=== PATIENT | male | born 1935 | race Caucasian/White ===

== ENCOUNTER → 2016-09-04 | Outpatient (CLI) | payer MEDICARE, BC ==
[2015-08-25 10:45] VITALS: BP 138/60
[~2016-09-04] MED LIST: ANTIFUNGAL CREA14 GM TP; ASPIRIN 32325 MG/TAB PO; CALCIUM600 M1 PO; HYDROCHLOROTHIA50 MG PO; LIPITOR 80MG80 MG PO; LOTREL 10 MG-201 CAP PO; MULTIPLE VITAMI1 CAP PO; NAPROXEN220 MG PO; VITAMIN C100 M2 PO; VITAMIN E 400 U4001 PO; ZETIA 10MG TAB10 MG PO
== END ==
LOC: RAD 10:28
DX: E78.2 Mixed hyperlipidemia (principal); Z12.5 Encounter for screening for malignant neoplasm of prostate; I10 Essential (primary) hypertension

== ENCOUNTER → 2016-10-11 | Outpatient (CLI) | payer MEDICARE, BC ==
[2015-08-25 10:45] VITALS: BP 138/60
== END ==
LOC: LAB 09:40
DX: E78.2 Mixed hyperlipidemia (principal); Z12.5 Encounter for screening for malignant neoplasm of prostate; I10 Essential (primary) hypertension

== ENCOUNTER → 2016-11-13 | Outpatient (CLI) | payer MEDICARE, BC ==
[2015-08-25 10:45] VITALS: BP 138/60
== END ==
LOC: LAB 09:49
DX: I10 Essential (primary) hypertension (principal)

== ENCOUNTER → 2016-12-12 | Outpatient (CLI) | payer MEDICARE, BC ==
[2015-08-25 10:45] VITALS: BP 138/60
== END ==
LOC: LAB 11:30
DX: I10 Essential (primary) hypertension (principal)

== ENCOUNTER → 2017-01-15 | Outpatient (CLI) | payer MEDICARE, BC ==
[2015-08-25 10:45] VITALS: BP 138/60
== END ==
LOC: LAB 11:19
DX: I10 Essential (primary) hypertension (principal)

== ENCOUNTER → 2017-04-18 | Outpatient (CLI) | payer MEDICARE, BC ==
[2015-08-25 10:45] VITALS: BP 138/60
[2017-04-18 12:58] LABS: BUN/CREATININE RATIO 26.3 (6.0-26.0); CALCIUM 8.9 mg/dL (8.4-10.2); POTASSIUM 4.3 mmol/L (3.6-5.0)
== END ==
LOC: LAB 11:56
PROVIDERS: Internal Medicine
DX: I10 Essential (primary) hypertension (principal)

== ENCOUNTER 2017-06-11 14:00 | Emergency (ER) | payer MEDICARE, BC ==
[~2017-06-11] VITALS: Wt 98.3 kg
[2017-06-11] MEDS ORDERED: ATORVASTATIN CA80 MG PO (14:48)
[2017-06-11] MEDS ORDERED: AMLODIPINE BES1 CAP PO (14:48)
[2017-06-11 14:49] LABS: HEMATOCRIT 29.5 % (42.0-52.0); HEMOGLOBIN 9.1 g/dL (13.5-18.0); MEAN CELL VOLUME 92 fl (78-100); MEAN CORPUSCULAR HEMOGLOBIN 28 pg (27-31); MEAN CORPUSCULAR HGB CONC 31 g/dL (33-37); MEAN PLATELET VOLUME 9.6 fl (7.4-10.4); PLATELET COUNT 224 K/mm3 (130-400); RED CELL DISTRIBUTION WIDTH 15.4 % (11.5-14.5); WHITE BLOOD COUNT 8.3 K/mm3 (4.8-10.8)
[2017-06-11 15:07] LABS: ALBUMIN 3.5 g/dL (3.5-5.0); BUN/CREATININE RATIO 26.1 (6.0-26.0); CALCIUM 8.6 mg/dL (8.4-10.2); TOTAL BILIRUBIN 0.2 mg/dL (0.2-1.3); TOTAL PROTEIN 6.1 g/dL (6.3-8.2)
[2017-06-11 16:22] LABS: LYMPHOCYTE 6 % (20-51); MONOCYTE 5 % (3-10); NEUTROPHILS 87 % (42-75)
[2017-06-11 17:25] VITALS: BP 165/79
== END 2017-06-11 17:20 | disposition other institution (70) ==
LOC: ED 14:00
PROVIDERS: Physician Assistant
DX: J43.9 Emphysema, unspecified (principal); I25.10 Atherosclerotic heart disease of native coronary artery without angina pectoris; I10 Essential (primary) hypertension; F17.210 Nicotine dependence, cigarettes, uncomplicated; Z86.73 Personal history of transient ischemic attack (TIA), and cerebral infarction without residual deficits; R01.1 Cardiac murmur, unspecified; Z79.82 Long term (current) use of aspirin; Z88.1 Allergy status to other antibiotic agents

== ENCOUNTER 2017-06-11 17:06 | Inpatient (IN) | payer MEDICARE, BC ==
[~2017-06-11] VITALS: Ht 180.3 cm; Wt 90.9 kg
[~2017-06-11 17:06] MED LIST changes: +AMLODIPINE BES1 CAP PO; +ATORVASTATIN CA80 MG PO
[2017-06-11 17:25] VITALS: BP 165/79
--- NOTE | 2017-06-11 17:30 | NUR ---
Pt admitted to room 206. Pt alert and oriented. Denies any current. at bedside. Pt reports worsening SOB with exertion. 02 on 2L via n/c. Lungs coarse throughout. Fall precautions in place. Call light in reach.
[2017-06-11 18:08] VITALS: BP 141/56
--- NOTE | 2017-06-11 20:33 | NUR ---
Chair alarm sounding. Pt found standing up in bathroom using urinal. Pt stated "I couldn't wait." Pt voided 300mls of yellow urine. Pt used walker, gait belt applied and manager etl socks on. Pt walked to recliner using walker. Gait steady.
[2017-06-12] VITALS (7 sets, daily range): BP systolic 132–141; BP diastolic 50–65
--- NOTE | 2017-06-12 06:00 | NUR ---
PATIENT HAS HAD CONTINUOUS PULSE OXIMETRY ON ALL SHIFT, SATS REMAINED PRIMARILY 92-95% ON 2L/NC, OCCASIONAL VERY BRIEF TIMES IT DIPPED TO 88%, PATIENT SLEPT WELL AND IS ALREADY SITTING UP IN HIS CHAIR READING A BOOK THIS AM, DENIES ANY NEEDS/COMPLAINTS AT THIS TIME, CALL LIGHT WITHIN REACH
--- NOTE | 2017-06-12 07:15 | NUR ---
REPORT RECEIVED FROM KAYLYN NARANJO.
--- NOTE | 2017-06-12 08:00 | NUR ---
AWAKE. TALKATIVE. OXYGEN IN PLACE AT 2LPM VIA NC. WHEEZES TO BILAT LUNG BASES WITH EXPIRATION; THEY CLEAR WITH COUGH. LOOSE SOUNDING COUGH UNPRODUCTIVE. HEART MURMUR NOTED. COMFORTABLE AT PRESENT. 2+ PITTING EDEMA TO BILAT FEET. 1+ PITTING EDEMA TO BILAT LE AT CALF/ANKLE REGION. CALL LIGHT IN REACH.
--- NOTE | 2017-06-12 08:45 | NUR ---
MICONAZOLE CREAM APPLIED TO BILAT FEET. RED FLAKEY AREAS NOTED TO BILAT FEET. ON THE RIGHT FOOT THEY APPEAR AROUND TOES AND ON PLANTAR SURFACE OF FOOT TO THE ARCH. ON THE LEFT FOOT THEY ALSO APPEAR AROUND THE TOES, BALL OF FOOT AND TOP OF FOOT TO MIDDLE.
--- NOTE | 2017-06-12 09:05 | NUR ---
BLOOD NOTED UNDER TEGADERM TO LT AC. INT PLACEMENT HAS APPROPRIATE BLOOD RETURN. SITE CLEANSED AND NEW TEGADERM DRESSING APPLIED.
--- NOTE | 2017-06-12 12:12 | NUR ---
DR HOOVER IN TO SEE PATIENT. [facility] DOES NOT HAVE LOTENSIN AVAILABLE AT PRESENT. OFFER TO SUB WITH LISINOPRIL OR HOLD DOSE UNTIL DELIVERY THIS AFTERNOON. DR HOOVER ORDERS TO GIVE LOTENSIN WHEN MED AVAILABLE. DO NOT SUB WITH LISINOPRIL. [facility] NOTIFIED.
--- NOTE | 2017-06-12 12:59 | NUR ---
PATIENT SITTING IN CHAIR READING A BOOK. LUNGS CTA BILAT. OXYGEN REMAINS IN PLACE AT 2LPM VIA NC. REPORTS DISCOMFORT TO UPPER BACK. DOES NOT RATE THIS PAIN WHEN ASKED, JUST STATES "IT COMES AND GOES. I HAVE A PINCHED NERVE THERE." HE USES HEAT AT HOME. WILL USE K-PAD PRN TO RELIEVE DISCOMFORT.
--- NOTE | 2017-06-12 15:22 | NUR ---
PATIENT REPORTS K-PAD IS HELPING WITH DISCOMFORT. CONTINUES TO HAVE SHORTNESS OF BREATH WITH ACTIVITY. OXYGEN DECREASED TO 1LPM PER NASAL CANNULA. REMAINS ON CONTINUOUS PULSE OX.
[2017-06-13 03:25] VITALS: BP 138/63
--- NOTE | 2017-06-13 03:30 | NUR ---
UPON ROUNDING CHECKS AND VITAL SIGNS, PATIENT WAS OBSERVED TO HAVE PULLED HIS IV OUT AND WAS WITHOUT HIS O2 TUBING. PATIENT DOES NOT APPEAR TO BE IN ANY OBVIOUS DISTRESS AT THIS TIME. PATIENT IS ALERT AND ORIENTED, AND CONVERSES APPROPRIATELY WITH STAFF. PATIENT DENIES KNOWING HOW THE IV GOT PULLED OUT BUT ACCEPTS THE OFFER OF THIS RN TO START ANOTHER ONE. PATIENT PROVIDED EDUCATION AT THIS TIME. O2 IS ALSO REPLACED WITH ENCOURAGEMENT TO KEEP IT ON. HOB ELEVATED TO A 20 DEGREE ANGLE. BED RAILS UP X2. BED ALARM ARMED. CALL LIGHT WITHIN REACH. CLOSE MONITORING AND HOURLY ROUNDING CONTINUE.
[2017-06-13 06:31] VITALS: BP 142/68
[2017-06-13 06:31] LABS: HEMATOCRIT 25.1 % (42.0-52.0); MEAN CELL VOLUME 92 fl (78-100); MEAN CORPUSCULAR HEMOGLOBIN 29 pg (27-31); MEAN CORPUSCULAR HGB CONC 31 g/dL (33-37); MEAN PLATELET VOLUME 10.2 fl (7.4-10.4); PLATELET COUNT 215 K/mm3 (130-400); RED BLOOD COUNT 2.74 M/mm3 (4.20-5.60); RED CELL DISTRIBUTION WIDTH 15.4 % (11.5-14.5); WHITE BLOOD COUNT 12.4 K/mm3 (4.8-10.8)
[2017-06-13 06:33] LABS: HEMOGLOBIN 7.8 g/dL (13.5-18.0)
--- NOTE | 2017-06-13 06:34 | NUR ---
CRITICAL HGB REPORTED TO THIS RN. VALUE REPORTED TO ERICK RAMIREZ.
[2017-06-13 06:36] LABS: ALBUMIN 3.4 g/dL (3.5-5.0); BUN/CREATININE RATIO 36.6 (6.0-26.0); CALCIUM 8.4 mg/dL (8.4-10.2); POTASSIUM 4.7 mmol/L (3.6-5.0); TOTAL BILIRUBIN 0.2 mg/dL (0.2-1.3); TOTAL PROTEIN 6.1 g/dL (6.3-8.2)
[2017-06-13 06:43] LABS: LYMPHOCYTE 1 % (20-51); MONOCYTE 1 % (3-10); NEUTROPHILS 98 % (42-75)
--- NOTE | 2017-06-13 07:00 | NUR ---
REPORT RECEIVED FROM HO NARANJO.
--- NOTE | 2017-06-13 07:00 | NUR ---
REPORT GIVEN TO LAURA Carias RN.
--- NOTE | 2017-06-13 07:36 | NUR ---
[employer] OPERATOR WAKES PATIENT TO GET READY FOR DAY. NOTES BLOOD TO GOWN AND SHEET. BLOOD NOTED TO RT AC UNDER AND AROUND INT DRESSING. INT FLUSHES EASILY WITH APPROPRIATE BLOOD RETURN. DRESSING REMOVED AND SKIN CLEANSED; NEW TEGADERM APPLIED.
--- NOTE | 2017-06-13 08:08 | NUR ---
DR HOOVER IN WITH PATIENT.
[2017-06-13 11:13] VITALS: BP 131/62
[2017-06-13 15:33] VITALS: BP 118/52
--- NOTE | 2017-06-13 15:48 | NUR ---
WALKS IN HALLWAY WITH PT. HAS TO STOP IN HALLWAY FOR BREAK DUE TO LE WEAKNESS AND FATIGUE. PULSE 127 WITH ACTIVITY. MAINTAINS PULSE OX SATURATION 89% OR GREATER.
[2017-06-13 18:00] VITALS: BP 133/62
--- NOTE | 2017-06-13 19:22 | NUR ---
REPORT PROVIDED TO KAYLYN NARANJO.
[2017-06-13 23:24] VITALS: BP 124/63
[2017-06-14 03:28] VITALS: BP 115/47
[2017-06-14 06:21] VITALS: BP 129/69
[2017-06-14 07:00] LABS: HEMATOCRIT 25.3 % (42.0-52.0); MEAN CELL VOLUME 92 fl (78-100); MEAN CORPUSCULAR HEMOGLOBIN 29 pg (27-31); MEAN CORPUSCULAR HGB CONC 32 g/dL (33-37); MEAN PLATELET VOLUME 9.9 fl (7.4-10.4); PLATELET COUNT 222 K/mm3 (130-400); RED BLOOD COUNT 2.76 M/mm3 (4.20-5.60); RED CELL DISTRIBUTION WIDTH 15.6 % (11.5-14.5); WHITE BLOOD COUNT 12.2 K/mm3 (4.8-10.8)
[2017-06-14 07:12] LABS: BUN/CREATININE RATIO 44.1 (6.0-26.0); CALCIUM 8.2 mg/dL (8.4-10.2); POTASSIUM 4.5 mmol/L (3.6-5.0)
[2017-06-14 07:50] LABS: LYMPHOCYTE 2 % (20-51); MONOCYTE 4 % (3-10); NEUTROPHILS 94 % (42-75)
[2017-06-14 11:20] VITALS: BP 125/38
[2017-06-14 14:19] VITALS: BP 131/56
== END 2017-06-14 15:36 | disposition swing bed (61) | DRG 191 ==
LOC: MED/SURG 17:06
PROVIDERS: Internal Medicine; ADMIT Nurse Practitioner
DX: J43.9 Emphysema, unspecified (principal); I50.30 Unspecified diastolic (congestive) heart failure; I11.0 Hypertensive heart disease with heart failure; Z66 Do not resuscitate; I50.82 Biventricular heart failure; F17.210 Nicotine dependence, cigarettes, uncomplicated; E78.5 Hyperlipidemia, unspecified; D64.9 Anemia, unspecified; I25.10 Atherosclerotic heart disease of native coronary artery without angina pectoris
CPT/HCPCS: J1650; J1940; J2930

== ENCOUNTER 2017-06-14 10:23 | Inpatient (IN) | payer MEDICARE, BC ==
[~2017-06-14] VITALS: Ht 180.3 cm; Wt 94.8 kg
[2017-06-14 11:49] VITALS: BP 125/38
[2017-06-14 15:41] VITALS: BP 131/56
[2017-06-14 18:04] VITALS: BP 132/54
[2017-06-15 06:29] VITALS: BP 110/57
[2017-06-15 19:07] VITALS: BP 122/43
[2017-06-16 07:14] VITALS: BP 125/61
[2017-06-16 18:29] VITALS: BP 121/47
[2017-06-17 06:27] VITALS: BP 117/50
[2017-06-17 18:38] VITALS: BP 133/57
[2017-06-18 06:24] VITALS: BP 130/53
[2017-06-18 18:16] VITALS: BP 138/58
[2017-06-19 06:46] VITALS: BP 146/68
[2017-06-19 18:12] VITALS: BP 131/56
[2017-06-20 06:27] VITALS: BP 158/73
[2017-06-20 18:19] VITALS: BP 128/53
[2017-06-21 06:11] VITALS: BP 168/89
[2017-06-21 06:47] LABS: BUN/CREATININE RATIO 43.8 (6.0-26.0); POTASSIUM 4.6 mmol/L (3.6-5.0)
== END 2017-06-21 10:10 | disposition home health service (06) | DRG 192 ==
LOC: MED/SURG 10:23
PROVIDERS: ADMIT Internal Medicine
DX: J44.1 Chronic obstructive pulmonary disease with (acute) exacerbation (principal); I11.0 Hypertensive heart disease with heart failure; I50.82 Biventricular heart failure; Z66 Do not resuscitate; F17.210 Nicotine dependence, cigarettes, uncomplicated; I25.10 Atherosclerotic heart disease of native coronary artery without angina pectoris; E78.5 Hyperlipidemia, unspecified
CPT/HCPCS: J1650; J7512

== ENCOUNTER → 2017-08-06 | Outpatient (CLI) | payer MEDICARE, BC ==
[2017-07-26 16:55] VITALS: BP 133/71
[~2017-08-06] MED LIST changes: +IPRATROPIUM BROM3 M1 IH
[2017-08-06 11:43] LABS: HEMATOCRIT 38.2 % (42.0-52.0); HEMOGLOBIN 11.7 g/dL (13.5-18.0); MEAN CELL VOLUME 94 fl (78-100); MEAN CORPUSCULAR HEMOGLOBIN 29 pg (27-31); MEAN CORPUSCULAR HGB CONC 31 g/dL (33-37); MEAN PLATELET VOLUME 10.1 fl (7.4-10.4); PLATELET COUNT 243 K/mm3 (130-400); RED BLOOD COUNT 4.08 M/mm3 (4.20-5.60); RED CELL DISTRIBUTION WIDTH 15.8 % (11.5-14.5); WHITE BLOOD COUNT 11.9 K/mm3 (4.8-10.8)
[2017-08-06 11:47] LABS: ALBUMIN 3.3 g/dL (3.5-5.0); BUN/CREATININE RATIO 23.2 (6.0-26.0); CALCIUM 8.5 mg/dL (8.4-10.2); TOTAL BILIRUBIN 0.2 mg/dL (0.2-1.3); TOTAL PROTEIN 6.2 g/dL (6.3-8.2)
[2017-08-06 12:11] LABS: BAND 1 % (0-10); LYMPHOCYTE 10 % (20-51); MONOCYTE 6 % (3-10); NEUTROPHILS 83 % (42-75)
== END ==
LOC: LAB 11:22
PROVIDERS: Internal Medicine
DX: I25.10 Atherosclerotic heart disease of native coronary artery without angina pectoris (principal)

== ENCOUNTER → 2017-08-20 | Outpatient (CLI) | payer MEDICARE, BC ==
[2017-07-26 16:55] VITALS: BP 133/71
[2017-08-20 09:44] LABS: ALBUMIN 3.3 g/dL (3.5-5.0); BUN/CREATININE RATIO 17.7 (6.0-26.0); CALCIUM 8.9 mg/dL (8.4-10.2); POTASSIUM 4.4 mmol/L (3.6-5.0); TOTAL BILIRUBIN 0.2 mg/dL (0.2-1.3); TOTAL PROTEIN 6.7 g/dL (6.3-8.2)
[2017-08-20 09:48] LABS: EOS # 0.4 (0.04-0.40); EOS % 5.1 % (0.0-4.0); HEMATOCRIT 36.1 % (42.0-52.0); HEMOGLOBIN 11.5 g/dL (13.5-18.0); LYMPH# 1.2 (1.50-4.00); MEAN CELL VOLUME 90 fl (78-100); MEAN CORPUSCULAR HEMOGLOBIN 29 pg (27-31); MEAN CORPUSCULAR HGB CONC 32 g/dL (33-37); MEAN PLATELET VOLUME 9.5 fl (7.4-10.4); MONO # 0.7 (0.20-0.80); NEU # 5.3 (1.40-6.50); PLATELET COUNT 212 K/mm3 (130-400); RED CELL DISTRIBUTION WIDTH 14.8 % (11.5-14.5); WHITE BLOOD COUNT 7.7 K/mm3 (4.8-10.8)
== END ==
LOC: LAB 09:20
PROVIDERS: Internal Medicine
DX: I25.10 Atherosclerotic heart disease of native coronary artery without angina pectoris (principal); Z88.1 Allergy status to other antibiotic agents

== ENCOUNTER → 2017-09-02 | Outpatient (CLI) | payer MEDICARE, BC ==
[2017-07-26 16:55] VITALS: BP 133/71
[2017-09-02 13:31] LABS: ALBUMIN 3.7 g/dL (3.5-5.0); BUN/CREATININE RATIO 22.3 (6.0-26.0); CALCIUM 9.4 mg/dL (8.4-10.2); EOS # 0.1 (0.04-0.40); EOS % 1.9 % (0.0-4.0); ERYTHROCYTE SEDIMENTATION RATE 53 mm/hr (0-20); HEMATOCRIT 37.5 % (42.0-52.0); HEMOGLOBIN 11.8 g/dL (13.5-18.0); MEAN CELL VOLUME 87 fl (78-100); MEAN CORPUSCULAR HEMOGLOBIN 28 pg (27-31); MEAN CORPUSCULAR HGB CONC 32 g/dL (33-37); MEAN PLATELET VOLUME 10.1 fl (7.4-10.4); MONO # 0.8 (0.20-0.80); PLATELET COUNT 230 K/mm3 (130-400); POTASSIUM 5.1 mmol/L (3.6-5.0); RED BLOOD COUNT 4.29 M/mm3 (4.20-5.60); RED CELL DISTRIBUTION WIDTH 14.6 % (11.5-14.5); TOTAL BILIRUBIN 0.2 mg/dL (0.2-1.3); TOTAL PROTEIN 7.1 g/dL (6.3-8.2)
[2017-09-03 02:19] LABS: TESTOSTERONE 53 ng/dL (221-716)
== END ==
LOC: LAB 09:44
PROVIDERS: Internal Medicine
DX: I63.9 Cerebral infarction, unspecified (principal); Z12.5 Encounter for screening for malignant neoplasm of prostate; I10 Essential (primary) hypertension; I73.9 Peripheral vascular disease, unspecified; I25.10 Atherosclerotic heart disease of native coronary artery without angina pectoris; N28.9 Disorder of kidney and ureter, unspecified; N52.9 Male erectile dysfunction, unspecified; Z88.1 Allergy status to other antibiotic agents

== ENCOUNTER → 2018-03-04 | Outpatient (CLI) | payer MEDICARE, BC ==
[2017-07-26 16:55] VITALS: BP 133/71
[2018-03-04 15:14] LABS: EOS # 0.2 (0.04-0.40); EOS % 1.9 % (0.0-4.0); HEMATOCRIT 33.3 % (42.0-52.0); HEMOGLOBIN 10.6 g/dL (13.5-18.0); LYMPH# 1.3 (1.50-4.00); MEAN CELL VOLUME 92 fl (78-100); MEAN CORPUSCULAR HEMOGLOBIN 29 pg (27-31); MEAN CORPUSCULAR HGB CONC 32 g/dL (33-37); MEAN PLATELET VOLUME 9.4 fl (7.4-10.4); MONO # 0.7 (0.20-0.80); NEU # 5.7 (1.40-6.50); PLATELET COUNT 235 K/mm3 (130-400); RED BLOOD COUNT 3.63 M/mm3 (4.20-5.60); RED CELL DISTRIBUTION WIDTH 14.7 % (11.5-14.5); WHITE BLOOD COUNT 7.9 K/mm3 (4.8-10.8)
[2018-03-04 15:44] LABS: CALCIUM 9.1 mg/dL (8.4-10.2); TOTAL BILIRUBIN 0.4 mg/dL (0.2-1.3); TOTAL PROTEIN 6.8 g/dL (6.3-8.2)
== END ==
LOC: LAB 15:04
PROVIDERS: Internal Medicine
DX: I25.10 Atherosclerotic heart disease of native coronary artery without angina pectoris (principal); I10 Essential (primary) hypertension; I63.9 Cerebral infarction, unspecified; J43.9 Emphysema, unspecified; I73.9 Peripheral vascular disease, unspecified

== ENCOUNTER 2018-06-21 13:34 | Observation (INO) | payer MEDICARE, BC ==
[2018-06-21] VITALS (9 sets, daily range): BP systolic 120–145; BP diastolic 49–72
[~2018-06-21] VITALS: Ht 177.8 cm; Wt 91.1 kg
[~2018-06-21 13:34] MED LIST changes: -CALCIUM600 M1 PO; +GOOD NEIGHBOR600 M1 PO; -MULTIPLE VITAMI1 CAP PO; +MULTIPLE VITAMI1 TA5 PO; +VITAMIN C PUR1000 MG PO; -VITAMIN C100 M2 PO; -VITAMIN E 400 U4001 PO; +VITAMIN E400 UNI1 PO; -ZETIA 10MG TAB10 MG PO; +ZETIA10 M1 PO
[2018-06-21 14:08] LABS: HEMATOCRIT 24.4 % (42.0-52.0); MEAN CELL VOLUME 95 fl (78-100); MEAN CORPUSCULAR HEMOGLOBIN 30 pg (27-31); MEAN CORPUSCULAR HGB CONC 32 g/dL (33-37); MEAN PLATELET VOLUME 9.9 fl (7.4-10.4); PLATELET COUNT 177 K/mm3 (130-400); RED BLOOD COUNT 2.56 M/mm3 (4.20-5.60); RED CELL DISTRIBUTION WIDTH 14.7 % (11.5-14.5); WHITE BLOOD COUNT 8.5 K/mm3 (4.8-10.8)
[2018-06-21] MEDS ORDERED: CLOPIDOGREL75 M2 PO (14:13)
[2018-06-21] MEDS ORDERED: RT SPIRIVA INH18 MCG IH (14:14)
[2018-06-21] MEDS ORDERED: FUROSEMIDE20 MG PO (14:14)
[2018-06-21] MEDS ORDERED: CHILDREN'S ASPI81 M1 PO (14:15)
[2018-06-21 14:19] LABS: ALBUMIN 3.4 g/dL (3.5-5.0); POTASSIUM 4.9 mmol/L (3.6-5.0); TOTAL BILIRUBIN 0.4 mg/dL (0.2-1.3); TOTAL PROTEIN 6.1 g/dL (6.3-8.2)
[2018-06-21 14:36] LABS: TROPONIN-I 0.67 ng/mL (0.00-0.06)
[2018-06-21 14:38] LABS: HEMOGLOBIN 7.7 g/dL (13.5-18.0)
[2018-06-21 14:44] LABS: LYMPHOCYTE 7 % (20-51); MONOCYTE 8 % (3-10); NEUTROPHILS 85 % (42-75)
[2018-06-21 14:45] LABS: HYPOCHROMIA 1+
[2018-06-21 15:17] LABS: URINE APPEARANCE CLEAR; URINE COLOR YELLOW
[2018-06-21 15:18] LABS: URINE BILIRUBIN NEGATIVE (NEGATIVE); URINE BLOOD NEGATIVE (NEGATIVE); URINE GLUCOSE NEGATIVE (NEGATIVE); URINE KETONE NEGATIVE (NEGATIVE); URINE LEUKOCYTE ESTERASE NEGATIVE (NEGATIVE); URINE NITRATE NEGATIVE (NEGATIVE); URINE PROTEIN(semi-quant) TRACE mg/dL (NEGATIVE); URINE UROBILINOGEN NORMAL (NORMAL)
[2018-06-21] MEDS ORDERED: OCUVITE EYE +1 EACH PO (21:05)
[2018-06-21] MEDS ORDERED: PROTONIX TR40 M1 PO (21:05)
[2018-06-21] MEDS ORDERED: FERROUS SULFAT325 M4 PO (21:06)
[2018-06-21] MEDS ORDERED: POTASSIUM600 MG PO (21:10)
[2018-06-22] VITALS (15 sets, daily range): BP systolic 108–141; BP diastolic 52–75
[2018-06-22 08:49] LABS: HEMATOCRIT 29.7 % (42.0-52.0); HEMOGLOBIN 9.7 g/dL (13.5-18.0); MEAN CELL VOLUME 91 fl (78-100); MEAN CORPUSCULAR HEMOGLOBIN 30 pg (27-31); MEAN CORPUSCULAR HGB CONC 33 g/dL (33-37); MEAN PLATELET VOLUME 10.2 fl (7.4-10.4); PLATELET COUNT 177 K/mm3 (130-400); RED BLOOD COUNT 3.28 M/mm3 (4.20-5.60); RED CELL DISTRIBUTION WIDTH 16.8 % (11.5-14.5); WHITE BLOOD COUNT 7.4 K/mm3 (4.8-10.8)
[2018-06-22 08:54] LABS: CALCIUM 9.4 mg/dL (8.4-10.2); POTASSIUM 4.9 mmol/L (3.6-5.0)
[2018-06-22 09:38] LABS: LYMPHOCYTE 11 % (20-51); MONOCYTE 2 % (3-10); NEUTROPHILS 85 % (42-75)
[2018-06-22 17:51] LABS: CALCIUM 9.1 mg/dL (8.4-10.2); POTASSIUM 5.5 mmol/L (3.6-5.0)
[2018-06-23 03:32] VITALS: BP 122/66
[2018-06-23 06:11] VITALS: BP 113/61
[2018-06-23 06:56] LABS: EOS # 0.2 (0.04-0.40); EOS % 2.6 % (0.0-4.0); HEMOGLOBIN 9.2 g/dL (13.5-18.0); LYMPH# 0.9 (1.50-4.00); MEAN CELL VOLUME 91 fl (78-100); MEAN CORPUSCULAR HEMOGLOBIN 29 pg (27-31); MEAN CORPUSCULAR HGB CONC 32 g/dL (33-37); MEAN PLATELET VOLUME 9.8 fl (7.4-10.4); MONO # 0.7 (0.20-0.80); NEU # 4.4 (1.40-6.50); PLATELET COUNT 170 K/mm3 (130-400); RED BLOOD COUNT 3.18 M/mm3 (4.20-5.60); RED CELL DISTRIBUTION WIDTH 16.4 % (11.5-14.5); WHITE BLOOD COUNT 6.2 K/mm3 (4.8-10.8)
[2018-06-23 07:12] LABS: TROPONIN-I 0.91 ng/mL (0.00-0.06)
[2018-06-23 07:18] LABS: CALCIUM 8.4 mg/dL (8.4-10.2); POTASSIUM 4.9 mmol/L (3.6-5.0)
[2018-06-23 11:05] VITALS: BP 121/65
[2018-06-23 15:15] VITALS: BP 144/69
[2018-06-23 18:21] VITALS: BP 138/81
[2018-06-23 22:35] VITALS: BP 169/70
[2018-06-24 02:48] VITALS: BP 138/66
[2018-06-24 06:17] VITALS: BP 125/64
[2018-06-24 07:28] LABS: ALBUMIN 3.1 g/dL (3.5-5.0); POTASSIUM 5.1 mmol/L (3.6-5.0); TOTAL BILIRUBIN 0.3 mg/dL (0.2-1.3); TOTAL PROTEIN 5.6 g/dL (6.3-8.2)
[2018-06-24 08:10] LABS: EOS # 0.3 (0.04-0.40); HEMATOCRIT 29.7 % (42.0-52.0); HEMOGLOBIN 9.3 g/dL (13.5-18.0); LYMPH# 0.8 (1.50-4.00); MEAN CELL VOLUME 93 fl (78-100); MEAN CORPUSCULAR HEMOGLOBIN 29 pg (27-31); MEAN CORPUSCULAR HGB CONC 31 g/dL (33-37); MEAN PLATELET VOLUME 10.4 fl (7.4-10.4); MONO # 0.8 (0.20-0.80); NEU # 4.5 (1.40-6.50); PLATELET COUNT 168 K/mm3 (130-400); RED BLOOD COUNT 3.21 M/mm3 (4.20-5.60); RED CELL DISTRIBUTION WIDTH 15.7 % (11.5-14.5); WHITE BLOOD COUNT 6.5 K/mm3 (4.8-10.8)
[2018-06-24 11:00] VITALS: BP 149/76
[2018-06-24 15:00] VITALS: BP 152/69
[2018-06-24] MEDS ORDERED: IPRATROPIUM BROM3 M1 IH (15:50)
[2018-06-24] MEDS ORDERED: PROTONIX TR40 M1 PO (15:50)
== END 2018-06-24 16:35 | disposition home or self-care (01) ==
LOC: ED 13:34 → MED/SURG 17:37
PROVIDERS: Internal Medicine; ADMIT Family Medicine
DX: K92.2 Gastrointestinal hemorrhage, unspecified (principal); D64.9 Anemia, unspecified; J43.9 Emphysema, unspecified; F17.200 Nicotine dependence, unspecified, uncomplicated; I50.23 Acute on chronic systolic (congestive) heart failure; I25.5 Ischemic cardiomyopathy; E87.5 Hyperkalemia; Z79.82 Long term (current) use of aspirin; Z79.02 Long term (current) use of antithrombotics/antiplatelets; Z88.8 Allergy status to other drugs, medicaments and biological substances
CPT/HCPCS: C9113; G0378; J1940; J3490; P9016

== ENCOUNTER → 2018-07-01 | Outpatient (CLI) | payer MEDICARE, BC ==
[2018-06-24 15:00] VITALS: BP 152/69
[~2018-07-01] MED LIST changes: +CHILDREN'S ASPI81 M1 PO; +CLOPIDOGREL75 M2 PO; +FERROUS SULFAT325 M4 PO; +FUROSEMIDE20 MG PO; +OCUVITE EYE +1 EACH PO; +POTASSIUM600 MG PO; +PROTONIX TR40 M1 PO; +RT SPIRIVA INH18 MCG IH
[2018-07-01 09:18] LABS: HEMATOCRIT 30.3 % (42.0-52.0); HEMOGLOBIN 9.6 g/dL (13.5-18.0); MEAN PLATELET VOLUME 9.8 fl (7.4-10.4); RED BLOOD COUNT 3.3 M/mm3 (4.20-5.60); RED CELL DISTRIBUTION WIDTH 14.8 % (11.5-14.5); WHITE BLOOD COUNT 9.3 K/mm3 (4.8-10.8)
[2018-07-01 09:31] LABS: ALBUMIN 3.8 g/dL (3.5-5.0); CALCIUM 8.9 mg/dL (8.4-10.2); POTASSIUM 5.2 mmol/L (3.6-5.0); TOTAL BILIRUBIN 0.3 mg/dL (0.2-1.3); TOTAL PROTEIN 6.7 g/dL (6.3-8.2)
== END ==
LOC: LAB 09:00
PROVIDERS: Internal Medicine
DX: I50.9 Heart failure, unspecified (principal); I25.10 Atherosclerotic heart disease of native coronary artery without angina pectoris; K92.2 Gastrointestinal hemorrhage, unspecified; D63.8 Anemia in other chronic diseases classified elsewhere

== ENCOUNTER 2018-07-11 10:01 | Emergency (ER) | payer MEDICARE, BC ==
[~2018-07-11] VITALS: Ht 177.8 cm; Wt 95.9 kg
[2018-07-11 10:46] LABS: MEAN CELL VOLUME 94 fl (78-100); MEAN CORPUSCULAR HEMOGLOBIN 30 pg (27-31); MEAN CORPUSCULAR HGB CONC 32 g/dL (33-37); PLATELET COUNT 256 K/mm3 (130-400); RED CELL DISTRIBUTION WIDTH 16.1 % (11.5-14.5); WHITE BLOOD COUNT 8.4 K/mm3 (4.8-10.8)
[2018-07-11 10:53] LABS: RED BLOOD COUNT 2.03 M/mm3 (4.20-5.60)
[2018-07-11 10:54] LABS: PROTHROMBIN TIME 10.4 SECONDS (9.0-12.0)
[2018-07-11 10:57] LABS: ALBUMIN 3.3 g/dL (3.5-5.0); CALCIUM 8.4 mg/dL (8.4-10.2); POTASSIUM 4.8 mmol/L (3.6-5.0); TOTAL BILIRUBIN 0.2 mg/dL (0.2-1.3); TOTAL PROTEIN 5.6 g/dL (6.3-8.2)
[2018-07-11 11:05] LABS: TROPONIN-I 6.07 ng/mL (0.00-0.06)
[2018-07-11 11:10] LABS: LYMPHOCYTE 9 % (20-51); MONOCYTE 6 % (3-10); NEUTROPHILS 84 % (42-75)
[2018-07-11 12:45] VITALS: BP 99/53
== END 2018-07-11 12:45 | disposition short-term general hospital (02) ==
LOC: ED 10:01
PROVIDERS: Nurse Practitioner Primary Care
DX: I21.4 Non-ST elevation (NSTEMI) myocardial infarction (principal); I95.9 Hypotension, unspecified; K25.4 Chronic or unspecified gastric ulcer with hemorrhage; I25.10 Atherosclerotic heart disease of native coronary artery without angina pectoris; J44.9 Chronic obstructive pulmonary disease, unspecified; I11.0 Hypertensive heart disease with heart failure; I50.9 Heart failure, unspecified; E78.5 Hyperlipidemia, unspecified; Z79.82 Long term (current) use of aspirin; Z79.02 Long term (current) use of antithrombotics/antiplatelets; Z87.891 Personal history of nicotine dependence
CPT/HCPCS: J3010; J7030

== ENCOUNTER → 2018-10-21 | Outpatient (CLI) | payer MEDICARE, BC ==
[2018-10-21 14:33] LABS: EOS # 0.3 (0.04-0.40); EOS % 2.8 % (0.0-4.0); HEMATOCRIT 37.8 % (42.0-52.0); HEMOGLOBIN 11.8 g/dL (13.5-18.0); LYMPH# 1.7 (1.50-4.00); MEAN CELL VOLUME 88 fl (78-100); MEAN CORPUSCULAR HEMOGLOBIN 28 pg (27-31); MEAN CORPUSCULAR HGB CONC 31 g/dL (33-37); MEAN PLATELET VOLUME 10.4 fl (7.4-10.4); MONO # 0.8 (0.20-0.80); NEU # 6.6 (1.40-6.50); PLATELET COUNT 172 K/mm3 (130-400); RED BLOOD COUNT 4.29 M/mm3 (4.20-5.60); RED CELL DISTRIBUTION WIDTH 15.9 % (11.5-14.5); WHITE BLOOD COUNT 9.4 K/mm3 (4.8-10.8)
== END ==
LOC: LAB 14:17
PROVIDERS: Internal Medicine Gastroenterology
DX: K31.819 Angiodysplasia of stomach and duodenum without bleeding (principal)

== ENCOUNTER → 2018-12-01 | Outpatient (CLI) | payer MEDICARE, BC ==
[2018-12-01 10:57] LABS: EOS # 0.3 (0.04-0.40); EOS % 3.2 % (0.0-4.0); HEMATOCRIT 33.9 % (42.0-52.0); HEMOGLOBIN 10.8 g/dL (13.5-18.0); LYMPH# 1.3 (1.50-4.00); MEAN CELL VOLUME 87 fl (78-100); MEAN CORPUSCULAR HEMOGLOBIN 28 pg (27-31); MEAN CORPUSCULAR HGB CONC 32 g/dL (33-37); MEAN PLATELET VOLUME 10.7 fl (7.4-10.4); MONO # 0.7 (0.20-0.80); NEU # 6.2 (1.40-6.50); PLATELET COUNT 163 K/mm3 (130-400); RED BLOOD COUNT 3.89 M/mm3 (4.20-5.60); RED CELL DISTRIBUTION WIDTH 16.3 % (11.5-14.5); WHITE BLOOD COUNT 8.5 K/mm3 (4.8-10.8)
== END ==
LOC: LAB 10:37
DX: D50.9 Iron deficiency anemia, unspecified (principal)

== ENCOUNTER → 2019-01-06 | Outpatient (CLI) | payer MEDICARE, BC ==
[2019-01-06 14:32] LABS: EOS # 0.2 (0.04-0.40); EOS % 2.1 % (0.0-4.0); HEMATOCRIT 34.7 % (42.0-52.0); HEMOGLOBIN 10.6 g/dL (13.5-18.0); LYMPH# 1.1 (1.50-4.00); MEAN CELL VOLUME 90 fl (78-100); MEAN CORPUSCULAR HEMOGLOBIN 28 pg (27-31); MEAN CORPUSCULAR HGB CONC 31 g/dL (33-37); MEAN PLATELET VOLUME 9.5 fl (7.4-10.4); MONO # 0.6 (0.20-0.80); NEU # 7.4 (1.40-6.50); PLATELET COUNT 188 K/mm3 (130-400); RED BLOOD COUNT 3.85 M/mm3 (4.20-5.60); RED CELL DISTRIBUTION WIDTH 15.9 % (11.5-14.5); WHITE BLOOD COUNT 9.3 K/mm3 (4.8-10.8)
[2019-01-06 14:43] LABS: ALBUMIN 3.7 g/dL (3.4-4.8); POTASSIUM 3.9 mmol/L (3.5-5.1)
[2019-01-06 14:44] LABS: CALCIUM 9.2 mg/dL (8.3-10.5)
[2019-01-06 14:45] LABS: TOTAL PROTEIN 7.3 g/dL (6.2-8.1)
[2019-01-06 14:47] LABS: TOTAL BILIRUBIN 0.5 mg/dL (0.2-1.2)
== END ==
LOC: LAB 14:16
PROVIDERS: Internal Medicine
DX: I25.10 Atherosclerotic heart disease of native coronary artery without angina pectoris (principal); I63.9 Cerebral infarction, unspecified; J43.9 Emphysema, unspecified; I73.9 Peripheral vascular disease, unspecified; K92.2 Gastrointestinal hemorrhage, unspecified; I11.0 Hypertensive heart disease with heart failure; I50.9 Heart failure, unspecified

== ENCOUNTER → 2019-05-06 | Outpatient (CLI) | payer MEDICARE, BC ==
[2019-05-06 10:33] LABS: EOS # 0.3 (0.04-0.40); EOS % 3.7 % (0.0-4.0); HEMATOCRIT 37.4 % (42.0-52.0); HEMOGLOBIN 11.8 g/dL (13.5-18.0); LYMPH# 1.1 (1.50-4.00); MEAN CELL VOLUME 89 fl (78-100); MEAN CORPUSCULAR HEMOGLOBIN 28 pg (27-31); MEAN CORPUSCULAR HGB CONC 32 g/dL (33-37); MEAN PLATELET VOLUME 10.2 fl (7.4-10.4); MONO # 0.6 (0.20-0.80); NEU # 4.7 (1.40-6.50); PLATELET COUNT 194 K/mm3 (130-400); RED BLOOD COUNT 4.21 M/mm3 (4.20-5.60); RED CELL DISTRIBUTION WIDTH 15.7 % (11.5-14.5); WHITE BLOOD COUNT 6.7 K/mm3 (4.8-10.8)
[2019-05-06 10:36] LABS: POTASSIUM 4.2 mmol/L (3.5-5.1)
[2019-05-06 10:37] LABS: ALBUMIN 3.7 g/dL (3.4-4.8)
[2019-05-06 10:38] LABS: CALCIUM 9.3 mg/dL (8.3-10.5)
[2019-05-06 10:39] LABS: TOTAL PROTEIN 6.9 g/dL (6.2-8.1)
[2019-05-06 10:41] LABS: TOTAL BILIRUBIN 0.4 mg/dL (0.2-1.2)
[2019-05-06 11:44] LABS: ERYTHROCYTE SEDIMENTATION RATE 48 mm/hr (0-20)
== END ==
LOC: LAB 10:12
PROVIDERS: Internal Medicine
DX: Z12.5 Encounter for screening for malignant neoplasm of prostate (principal); I63.9 Cerebral infarction, unspecified; I10 Essential (primary) hypertension; I73.9 Peripheral vascular disease, unspecified; I25.10 Atherosclerotic heart disease of native coronary artery without angina pectoris; N28.9 Disorder of kidney and ureter, unspecified; N52.9 Male erectile dysfunction, unspecified

== ENCOUNTER → 2019-05-18 | Outpatient (CLI) | payer MEDICARE, BC | LOC: LAB 13:36 | DX: I63.9 Cerebral infarction, unspecified (principal); I10 Essential (primary) hypertension; I73.9 Peripheral vascular disease, unspecified; I25.10 Atherosclerotic heart disease of native coronary artery without angina pectoris; N28.9 Disorder of kidney and ureter, unspecified ==

== ENCOUNTER → 2019-10-05 | Outpatient (CLI) | payer MEDICARE, BC ==
[2019-10-05 11:59] LABS: EOS # 0.2 (0.04-0.40); EOS % 1.9 % (0.0-4.0); HEMATOCRIT 39.6 % (42.0-52.0); HEMOGLOBIN 12.7 g/dL (13.5-18.0); LYMPH# 1.1 (1.50-4.00); MEAN CELL VOLUME 90 fl (78-100); MEAN CORPUSCULAR HEMOGLOBIN 29 pg (27-31); MEAN CORPUSCULAR HGB CONC 32 g/dL (33-37); MEAN PLATELET VOLUME 9.9 fl (7.4-10.4); MONO # 0.7 (0.20-0.80); NEU # 6.4 (1.40-6.50); PLATELET COUNT 163 K/mm3 (130-400); RED BLOOD COUNT 4.41 M/mm3 (4.20-5.60); RED CELL DISTRIBUTION WIDTH 14.5 % (11.5-14.5); WHITE BLOOD COUNT 8.4 K/mm3 (4.8-10.8)
[2019-10-05 12:03] LABS: POTASSIUM 4.2 mmol/L (3.5-5.1)
[2019-10-05 12:04] LABS: ALBUMIN 3.9 g/dL (3.4-4.8)
[2019-10-05 12:05] LABS: CALCIUM 9.2 mg/dL (8.3-10.5)
[2019-10-05 12:06] LABS: TOTAL PROTEIN 6.7 g/dL (6.2-8.1)
[2019-10-05 12:08] LABS: TOTAL BILIRUBIN 0.5 mg/dL (0.2-1.2)
== END ==
LOC: RAD 11:23
PROVIDERS: Internal Medicine
DX: S82.434A Nondisplaced oblique fracture of shaft of right fibula, initial encounter for closed fracture (principal); M25.561 Pain in right knee; I10 Essential (primary) hypertension; I73.9 Peripheral vascular disease, unspecified; W19.XXXA Unspecified fall, initial encounter

== ENCOUNTER → 2019-10-29 | Outpatient (CLI) | payer MEDICARE, BC | LOC: RAD 09:28 | DX: S82.61XA Displaced fracture of lateral malleolus of right fibula, initial encounter for closed fracture (principal) ==

== ENCOUNTER → 2019-12-29 | Outpatient (CLI) | payer MEDICARE, BC ==
[2019-12-29 13:56] LABS: EOS # 0.2 (0.04-0.40); EOS % 1.7 % (0.0-4.0); HEMATOCRIT 38.9 % (42.0-52.0); HEMOGLOBIN 12.4 g/dL (13.5-18.0); LYMPH# 1.3 (1.50-4.00); MEAN CELL VOLUME 92 fl (78-100); MEAN CORPUSCULAR HEMOGLOBIN 29 pg (27-31); MEAN CORPUSCULAR HGB CONC 32 g/dL (33-37); MONO # 0.7 (0.20-0.80); NEU # 6.8 (1.40-6.50); PLATELET COUNT 176 K/mm3 (130-400); RED BLOOD COUNT 4.23 M/mm3 (4.20-5.60); RED CELL DISTRIBUTION WIDTH 14.9 % (11.5-14.5)
[2019-12-29 14:05] LABS: POTASSIUM 4.2 mmol/L (3.5-5.1)
[2019-12-29 14:07] LABS: CALCIUM 9.2 mg/dL (8.3-10.5)
[2019-12-29 14:08] LABS: TOTAL PROTEIN 7.3 g/dL (6.2-8.1)
[2019-12-29 14:10] LABS: TOTAL BILIRUBIN 0.4 mg/dL (0.2-1.2)
== END ==
LOC: LAB 13:46
PROVIDERS: Internal Medicine
DX: I25.10 Atherosclerotic heart disease of native coronary artery without angina pectoris (principal); I10 Essential (primary) hypertension; I63.9 Cerebral infarction, unspecified; J43.9 Emphysema, unspecified; I73.9 Peripheral vascular disease, unspecified

== ENCOUNTER → 2020-03-31 | Outpatient (CLI) | payer MEDICARE, BC ==
[2020-03-31 14:46] LABS: EOS # 0.2 (0.04-0.40); EOS % 2.3 % (0.0-4.0); HEMATOCRIT 34.7 % (42.0-52.0); HEMOGLOBIN 10.6 g/dL (13.5-18.0); LYMPH# 1.1 (1.50-4.00); MEAN CELL VOLUME 95 fl (78-100); MEAN CORPUSCULAR HEMOGLOBIN 29 pg (27-31); MEAN CORPUSCULAR HGB CONC 31 g/dL (33-37); MEAN PLATELET VOLUME 10.9 fl (7.4-10.4); MONO # 0.6 (0.20-0.80); NEU # 5.7 (1.40-6.50); PLATELET COUNT 180 K/mm3 (130-400); RED BLOOD COUNT 3.64 M/mm3 (4.20-5.60); RED CELL DISTRIBUTION WIDTH 15.7 % (11.5-14.5); WHITE BLOOD COUNT 7.5 K/mm3 (4.8-10.8)
[2020-03-31 14:56] LABS: POTASSIUM 4.2 mmol/L (3.5-5.1)
[2020-03-31 14:57] LABS: ALBUMIN 3.8 g/dL (3.4-4.8)
[2020-03-31 14:58] LABS: CALCIUM 8.9 mg/dL (8.3-10.5)
[2020-03-31 15:01] LABS: TOTAL BILIRUBIN 0.4 mg/dL (0.2-1.2)
[2020-03-31 15:06] LABS: MAGNESIUM 1.81 mg/dL (1.60-2.60)
[2020-03-31 15:58] LABS: ERYTHROCYTE SEDIMENTATION RATE 50 mm/hr (0-20)
== END ==
LOC: LAB 14:19
PROVIDERS: Internal Medicine
DX: I25.10 Atherosclerotic heart disease of native coronary artery without angina pectoris (principal); K90.9 Intestinal malabsorption, unspecified

== ENCOUNTER 2020-04-27 19:49 | Emergency (ER) | payer MEDICARE, BC ==
[2020-04-27] MEDS ORDERED: METOPROLOL SUCC25 M1 PO (20:17)
[2020-04-27] MEDS ORDERED: ISOSORBIDE30 MG PO (20:18)
[2020-04-27] MEDS ORDERED: EZETIMIBE10 M1 PO (20:18)
[2020-04-27 21:14] LABS: EOS # 0.1 (0.04-0.40); EOS % 1.7 % (0.0-4.0); HEMATOCRIT 32.8 % (42.0-52.0); HEMOGLOBIN 9.8 g/dL (13.5-18.0); MEAN CELL VOLUME 95 fl (78-100); MEAN CORPUSCULAR HEMOGLOBIN 28 pg (27-31); MEAN CORPUSCULAR HGB CONC 30 g/dL (33-37); MEAN PLATELET VOLUME 10.6 fl (7.4-10.4); MONO # 0.6 (0.20-0.80); NEU # 5.8 (1.40-6.50); PLATELET COUNT 198 K/mm3 (130-400); RED BLOOD COUNT 3.45 M/mm3 (4.20-5.60); RED CELL DISTRIBUTION WIDTH 15.2 % (11.5-14.5); WHITE BLOOD COUNT 7.5 K/mm3 (4.8-10.8)
[2020-04-27 21:15] LABS: ALBUMIN 3.5 g/dL (3.4-4.8)
[2020-04-27 21:17] LABS: CALCIUM 8.7 mg/dL (8.3-10.5)
[2020-04-27 21:18] LABS: TOTAL PROTEIN 6.5 g/dL (6.2-8.1)
[2020-04-27 21:20] LABS: TOTAL BILIRUBIN 0.4 mg/dL (0.2-1.2)
[2020-04-27 21:31] LABS: D-DIMER 3.15 mg/L FEU (0.15-0.50)
[2020-04-27 23:26] VITALS: BP 155/81
== END 2020-04-27 23:26 | disposition short-term general hospital (02) ==
LOC: ED 19:49
PROVIDERS: Physician Assistant
DX: J44.1 Chronic obstructive pulmonary disease with (acute) exacerbation (principal); I13.0 Hypertensive heart and chronic kidney disease with heart failure and stage 1 through stage 4 chronic kidney disease, or unspecified chronic kidney disease; I50.9 Heart failure, unspecified; N18.9 Chronic kidney disease, unspecified; E78.5 Hyperlipidemia, unspecified; Z20.828 Contact with and (suspected) exposure to other viral communicable diseases; Z87.891 Personal history of nicotine dependence; Z95.5 Presence of coronary angioplasty implant and graft; Z88.1 Allergy status to other antibiotic agents; Z79.51 Long term (current) use of inhaled steroids; Z79.02 Long term (current) use of antithrombotics/antiplatelets; Z79.82 Long term (current) use of aspirin
CPT/HCPCS: J1940; J2930

== ENCOUNTER → 2020-05-16 | Outpatient (CLI) | payer MEDICARE, BC ==
[2020-04-27 23:26] VITALS: BP 155/81
[~2020-05-16] MED LIST changes: +EZETIMIBE10 M1 PO; +GLUCOSAMIN-CHO1 EACH PO; +ISOSORBIDE30 MG PO; +LASIX40 M1 PO; +METOPROLOL SUCC25 M1 PO
[2020-05-16 15:47] LABS: POTASSIUM 3.1 mmol/L (3.5-5.1)
[2020-05-16 15:48] LABS: CALCIUM 8.5 mg/dL (8.3-10.5)
== END ==
LOC: LAB 15:21
PROVIDERS: Internal Medicine
DX: N18.4 Chronic kidney disease, stage 4 (severe) (principal)

== ENCOUNTER 2020-05-19 04:53 | Emergency (ER) | payer MEDICARE, BC ==
[~2020-05-19 04:53] MED LIST changes: -GLUCOSAMIN-CHO1 EACH PO; -LASIX40 M1 PO
[2020-05-19 05:43] LABS: MEAN CELL VOLUME 97 fl (78-100); MEAN CORPUSCULAR HEMOGLOBIN 29 pg (27-31); MEAN CORPUSCULAR HGB CONC 30 g/dL (33-37); MEAN PLATELET VOLUME 10.8 fl (7.4-10.4); PLATELET COUNT 125 K/mm3 (130-400); RED BLOOD COUNT 2.45 M/mm3 (4.20-5.60); RED CELL DISTRIBUTION WIDTH 16.9 % (11.5-14.5); WHITE BLOOD COUNT 8.8 K/mm3 (4.8-10.8)
[2020-05-19 05:46] LABS: ALBUMIN 3.1 g/dL (3.4-4.8); POTASSIUM 3.2 mmol/L (3.5-5.1)
[2020-05-19 05:47] LABS: CALCIUM 8.1 mg/dL (8.3-10.5)
[2020-05-19 05:49] LABS: TOTAL PROTEIN 5.3 g/dL (6.2-8.1)
[2020-05-19 05:50] LABS: TOTAL BILIRUBIN 0.3 mg/dL (0.2-1.2)
[2020-05-19 05:53] LABS: HEMATOCRIT 23.8 % (42.0-52.0); HEMOGLOBIN 7.2 g/dL (13.5-18.0)
[2020-05-19 05:59] LABS: PARTIAL THROMBOPLASTIN TIME 23.8 SECONDS (21.0-32.0); PROTHROMBIN TIME 10.8 SECONDS (9.0-12.0)
[2020-05-19] MEDS ORDERED: LASIX40 M1 PO (06:04)
[2020-05-19] MEDS ORDERED: GLUCOSAMIN-CHO1 EACH PO (06:05)
[2020-05-19] MEDS ORDERED: POTASSIUM600 MG PO (06:06)
[2020-05-19 06:19] LABS: BAND 1 % (0-10)
[2020-05-19 06:20] LABS: LYMPHOCYTE 2 % (20-51); MONOCYTE 8 % (3-10); NEUTROPHILS 88 % (42-75); OVALOCYTES 1+; POLYCHROMASIA 1+
[2020-05-19 09:17] LABS: TROPONIN-I 0.19 ng/mL (<0.030)
[2020-05-19 09:31] LABS: D-DIMER 2.07 mg/L FEU (0.15-0.50)
[2020-05-19 12:09] VITALS: BP 120/70
== END 2020-05-19 12:41 | disposition short-term general hospital (02) ==
LOC: ED 04:53
PROVIDERS: Nurse Practitioner; Physician Assistant
DX: I21.4 Non-ST elevation (NSTEMI) myocardial infarction (principal); D64.9 Anemia, unspecified; R79.1 Abnormal coagulation profile; I50.9 Heart failure, unspecified; I10 Essential (primary) hypertension; J44.9 Chronic obstructive pulmonary disease, unspecified; N18.9 Chronic kidney disease, unspecified; Z95.9 Presence of cardiac and vascular implant and graft, unspecified; Z88.1 Allergy status to other antibiotic agents; Z79.02 Long term (current) use of antithrombotics/antiplatelets; Z79.82 Long term (current) use of aspirin
CPT/HCPCS: C9113

== ENCOUNTER → 2020-06-13 | Outpatient (CLI) | payer MEDICARE, BC ==
[2020-05-19 12:09] VITALS: BP 120/70
[~2020-06-13] MED LIST changes: +GLUCOSAMIN-CHO1 EACH PO; +LASIX40 M1 PO
[2020-06-13 15:24] LABS: EOS # 0.1 (0.04-0.40); EOS % 1.5 % (0.0-4.0); HEMATOCRIT 29.8 % (42.0-52.0); HEMOGLOBIN 8.8 g/dL (13.5-18.0); LYMPH# 0.8 (1.50-4.00); MEAN CELL VOLUME 97 fl (78-100); MEAN CORPUSCULAR HEMOGLOBIN 29 pg (27-31); MEAN CORPUSCULAR HGB CONC 30 g/dL (33-37); MEAN PLATELET VOLUME 9.8 fl (7.4-10.4); MONO # 0.6 (0.20-0.80); NEU # 4.5 (1.40-6.50); PLATELET COUNT 184 K/mm3 (130-400); RED BLOOD COUNT 3.08 M/mm3 (4.20-5.60); RED CELL DISTRIBUTION WIDTH 18.3 % (11.5-14.5)
[2020-06-13 15:36] LABS: ALBUMIN 3.3 g/dL (3.4-4.8)
[2020-06-13 15:37] LABS: POTASSIUM 3.7 mmol/L (3.5-5.1)
[2020-06-13 15:38] LABS: CALCIUM 8.5 mg/dL (8.3-10.5)
[2020-06-13 15:39] LABS: TOTAL PROTEIN 6.2 g/dL (6.2-8.1)
[2020-06-13 15:41] LABS: TOTAL BILIRUBIN 0.4 mg/dL (0.2-1.2)
== END ==
LOC: LAB 15:09
PROVIDERS: Internal Medicine
DX: N18.4 Chronic kidney disease, stage 4 (severe) (principal)

== ENCOUNTER 2020-06-17 03:44 | Emergency (ER) | payer MEDICARE, BC ==
[2020-06-17 05:23] LABS: HEMATOCRIT 26.2 % (42.0-52.0); MEAN CELL VOLUME 98 fl (78-100); MEAN CORPUSCULAR HEMOGLOBIN 29 pg (27-31); MEAN CORPUSCULAR HGB CONC 30 g/dL (33-37); MEAN PLATELET VOLUME 11.1 fl (7.4-10.4); PLATELET COUNT 139 K/mm3 (130-400); RED BLOOD COUNT 2.68 M/mm3 (4.20-5.60); RED CELL DISTRIBUTION WIDTH 18.6 % (11.5-14.5); WHITE BLOOD COUNT 7.9 K/mm3 (4.8-10.8)
[2020-06-17 05:38] LABS: ALBUMIN 3.2 g/dL (3.4-4.8); POTASSIUM 3.9 mmol/L (3.5-5.1)
[2020-06-17 05:39] LABS: CALCIUM 8.8 mg/dL (8.3-10.5)
[2020-06-17 05:42] LABS: TOTAL BILIRUBIN 0.5 mg/dL (0.2-1.2)
[2020-06-17 05:45] LABS: HEMOGLOBIN 7.8 g/dL (13.5-18.0)
[2020-06-17 06:01] LABS: D-DIMER 2.19 mg/L FEU (0.15-0.50)
[2020-06-17 06:03] LABS: HYPOCHROMIA 1+; LYMPHOCYTE 12 % (20-51); MONOCYTE 8 % (3-10); NEUTROPHILS 80 % (42-75)
[2020-06-17 06:06] LABS: MICROCYTOSIS 1+; OVALOCYTES 1+; POLYCHROMASIA 1+
[2020-06-17 06:12] LABS: TROPONIN-I 4.75 ng/mL (<0.030)
[2020-06-17 08:06] VITALS: BP 118/68
== END 2020-06-17 08:30 | disposition short-term general hospital (02) ==
LOC: ED 03:44
PROVIDERS: Nurse Practitioner Family
DX: U07.1 COVID-19 (principal); J12.82 Pneumonia due to coronavirus disease 2019; R74.8 Abnormal levels of other serum enzymes; I13.0 Hypertensive heart and chronic kidney disease with heart failure and stage 1 through stage 4 chronic kidney disease, or unspecified chronic kidney disease; J44.9 Chronic obstructive pulmonary disease, unspecified; E78.5 Hyperlipidemia, unspecified; Z95.9 Presence of cardiac and vascular implant and graft, unspecified; Z87.891 Personal history of nicotine dependence; Z79.82 Long term (current) use of aspirin; Z79.02 Long term (current) use of antithrombotics/antiplatelets
CPT/HCPCS: J0456; J1100; J1940; J7030; J7050